=== PATIENT | female | born 1990 | race Caucasian/White ===

== ENCOUNTER 2017-07-23 21:05 | Observation (INO) | payer MEDICAID ==
[~2017-07-23] VITALS: Ht 144.8 cm; Wt 73.5 kg
[~2017-07-23 21:05] MED LIST: PRENATAL VIT
[2017-07-23] MEDS ORDERED: TERBUTALINE SULFATE 1MG/ML VIAL SUBCUT PRN (22:00)
[2017-07-23] MEDS ORDERED: PNV1TABL76 MT (22:53)
== END 2017-07-23 23:00 | disposition home or self-care (01) ==
LOC: L&D 21:05
PROVIDERS: ADMIT Obstetrics & Gynecology; ATTEND Obstetrics & Gynecology
DX: O42.913 Preterm premature rupture of membranes, unspecified as to length of time between rupture and onset of labor, third trimester (principal); Z3A.36 36 weeks gestation of pregnancy
CPT/HCPCS: 76815; 96372; 99281; G0378; J3105

== ENCOUNTER 2018-09-23 20:17 | Emergency (ER) | payer MEDICAID ==
[~2018-09-23] VITALS: Ht 144.8 cm; Wt 69.0 kg
[~2018-09-23 20:17] MED LIST changes: +PNV1TABL76 MT
[2018-09-23] MEDS ORDERED: SODIUM CHLORIDE 0.9% 1,000 ML IV ONE (23:00)
[2018-09-23 23:26] LABS: COLOR URINE YELLOW (YELLOW); KETONES URINE NEGATIVE (NEGATIVE); LEUKOCYTE ESTERASE URINE NEGATIVE (NEGATIVE); NITRITE URINE NEGATIVE (NEGATIVE); OCCULT BLOOD URINE NEGATIVE (NEGATIVE); PH URINE 7.5 (4.5-8.0); PROTEIN URINE NEGATIVE (NEGATIVE); SPECIFIC GRAVITY URINE 1.011 (1.005-1.030); UROBILINOGEN URINE 0.2 E.U./dL (0.2-1.0)
[2018-09-23 23:38] LABS: CLARITY URINE CLEAR (CLEAR)
[2018-09-23 23:55] LABS: BASOPHILS % 0.5 % (0.0-2.0); HEMATOCRIT. 37.5 % (36.0-48.0); HEMOGLOBIN. 12.2 g/dL (12.0-16.0); LYMPHOCYTES % 17.3 % (20.0-50.0); MEAN CORPUSCULAR HEMOGLOBIN 27.4 pg (28.0-32.0); MEAN CORPUSCULAR VOLUME 84.2 fL (81.0-99.0); MEAN PLATELET VOLUME 8.7 fl (7.4-10.4); MONOCYTES % 7.5 % (2.0-8.0); NEUTROPHILS % 73.7 % (40.0-76.0); PLATELET 346 x1000/uL (130-400); RED BLOOD CELL COUNT 4.45 mill/uL (4.2-5.4)
[2018-09-23 23:56] LABS: CHLORIDE 107 mEq/L (98-107)
[2018-09-23 23:57] LABS: PROTHROMBIN TIME 10.5 sec (9.6-11.0)
[2018-09-23 23:58] LABS: HCG SCREEN POSITIVE
[2018-09-24] MEDS ORDERED: CYCLOBENZAPRINE 10MG TABLET PO ONE (01:00)
[2018-09-24] MEDS ORDERED: OXYCODONE HCL/ACETAMINOPHEN 5/325MG TABLET PO ONE (01:00)
[2018-09-24] MEDS ORDERED: ACETAMINOPHEN 325MG TABLET PO ONE (01:15)
[2018-09-24 02:47] VITALS: BP 97/63
== END 2018-09-24 03:44 | disposition home or self-care (01) ==
LOC: ER 20:17
DX: O26.891 Other specified pregnancy related conditions, first trimester (principal); R10.32 Left lower quadrant pain; R10.12 Left upper quadrant pain; Z3A.08 8 weeks gestation of pregnancy; Z98.890 Other specified postprocedural states
CPT/HCPCS: 36415; 76801; 76817; 80053; 81003; 81025; 83690; 84702; 84703; 85025; 85610; 86850; 86900; 86901; 87086; 99284; J7030; Z7610

== ENCOUNTER 2019-09-01 09:16 | Emergency (ER) | payer MEDICAID ==
[~2019-09-01] VITALS: Ht 144.8 cm; Wt 71.7 kg
[2019-09-01] MEDS ORDERED: ACETAMINOPHEN 325MG TABLET PO STA (09:36)
[2019-09-01 11:34] VITALS: BP 110/70
== END 2019-09-01 11:40 | disposition home or self-care (01) ==
LOC: ER 09:16
DX: R07.89 Other chest pain (principal); B34.9 Viral infection, unspecified; Z79.899 Other long term (current) drug therapy
CPT/HCPCS: 71045; 93005; 99285